=== PATIENT | male | born 1990 | race African-American/Black ===

== ENCOUNTER 2016-08-15 17:24 | Emergency (ER) | payer SELFPAY ==
[~2016-08-15] VITALS: Ht 165.1 cm; Wt 63.5 kg
[2016-08-15 18:09] VITALS: BP 111/68
== END 2016-08-15 19:15 | disposition home or self-care (01) ==
LOC: ER 17:26
DX: S16.1XXA Strain of muscle, fascia and tendon at neck level, initial encounter (principal); V48.6XXA Car passenger injured in noncollision transport accident in traffic accident, initial encounter; Y93.89 Activity, other specified; Y92.488 Other paved roadways as the place of occurrence of the external cause; Y99.8 Other external cause status
CPT/HCPCS: 99283; A4606; Z7610